=== PATIENT | female | born 1975 | race Caucasian/White ===

== ENCOUNTER 2017-10-29 13:44 | Inpatient (IN) | payer MEDICAID ==
[2017-10-29 15:33] LABS: RUPTURE FETAL MEMBRANES POSITIVE (NEGATIVE)
[2017-10-29] MEDS: BETAMET NA PHOS/AC(6 MG/ML) 5ML INJ IM (16:22)
[2017-10-29 16:49] LABS: ADD MAN DIFF? NO
[2017-10-29 16:51] LABS: BASOPHIL # 0.1 10^3/ul (0.0-0.1); BASOPHILS % 0.4 % (0.0-2.0); EOSINOPHILS # 0.1 10^3/ul (0.0-0.5); EOSINOPHILS % 1.1 % (0.0-7.0); HEMATOCRIT 35.4 % (37.0-47.0); HEMOGLOBIN 11.5 g/dl (12.0-16.0); LYMPHOCYTES % 16.2 % (15.0-51.0); MEAN CORPUSCULAR HEMOGLOBIN 26.4 pg (29.0-33.0); MEAN CORPUSCULAR HGB CONC 32.5 g/dl (32.0-37.0); MEAN CORPUSCULAR VOLUME 81.2 fl (82.0-101.0); MEAN PLATELET VOLUME 10.7 fl (7.4-10.4); MONOCYTE # 1.1 10^3/ul (0.3-0.9); MONOCYTES % 8.9 % (0.0-11.0); NEUTROPHIL # 8.9 10^3/ul (1.6-7.5); NEUTROPHILS % 71.9 % (39.0-77.0); PLATELET COUNT 199 10^3/UL (140-415); RED BLOOD COUNT 4.36 10^6/ul (4.20-5.40)
[2017-10-29 16:51] LABS: WHITE BLOOD COUNT 12.3 10^3/ul (4.8-10.8)
[2017-10-29 17:11] LABS: INR 0.89; PROTIME 12.1 Sec (11.9-14.9); PT RATIO 0.9
[2017-10-29] MEDS: LACTATED RINGER'S 1,000 ML IV ×2 (17:25→23:49)
[2017-10-29] MEDS: AMPICILLIN 2 GM/NS (PMX) 100 ML IVPB (17:40)
[2017-10-29] MEDS: ACCU-CHEK XX (20:20)
[2017-10-29] MEDS: AZITHROMYCIN 500MG/NS (PMX) 250 ML IVPB (20:35)
[2017-10-29] MEDS ORDERED: MICONAZOLE 100 MG VAG SUPP VAG (21:00)
[2017-10-29] MEDS: AMPICILLIN 1 GM/NS (PMX) 50 ML IVPB (22:12)
[2017-10-29] MEDS: NIFEdipine (XL) 30 MG TAB PO (23:00)
[2017-10-29] MEDS: MICONAZOLE 100 MG VAG SUPP VAG (23:34)
[2017-10-30] MEDS: AMPICILLIN 1 GM/NS (PMX) 50 ML IVPB ×6 (02:02→22:23)
[2017-10-30] MEDS ORDERED: GLUCOSE GEL 15 GRAM TUBE BUCCAL (09:00)
[2017-10-30] MEDS ORDERED: GLUCOSE GEL 15 GRAM TUBE PO ×2 (09:00)
[2017-10-30] MEDS ORDERED: DEXTROSE 50% 50 ML SYRINGE IV ×2 (09:00)
[2017-10-30] MEDS ORDERED: GLUCAGON 1 MG INJ IM (09:00)
[2017-10-30] MEDS: PRENATAL VITAMIN PO (09:32)
[2017-10-30] MEDS: FERROUS SULFATE (EC) 325 MG TAB PO (09:32)
[2017-10-30] MEDS: LACTATED RINGER'S 1,000 ML IV ×2 (09:35→18:23)
[2017-10-30] MEDS: BETAMET NA PHOS/AC(6 MG/ML) 5ML INJ IM (16:23)
[2017-10-30] MEDS: ACCU-CHEK XX (20:15)
[2017-10-30 20:55] LABS: RAPID PLASMA REAGIN NONREACTIVE (NR)
[2017-10-30] MEDS: NIFEdipine (XL) 30 MG TAB PO (21:00)
[2017-10-30] MEDS: AZITHROMYCIN 500MG/NS (PMX) 250 ML IVPB (21:11)
[2017-10-30] MEDS: MICONAZOLE 100 MG VAG SUPP VAG (22:10)
[2017-10-30] MEDS: metFORMIN 500 MG TAB PO (22:10)
[2017-10-31] MEDS: AMPICILLIN 1 GM/NS (PMX) 50 ML IVPB ×6 (02:31→22:46)
[2017-10-31] MEDS: LACTATED RINGER'S 1,000 ML IV ×3 (04:06→21:03)
[2017-10-31] MEDS: ONDANSETRON 4 MG INJ IV (09:28)
[2017-10-31] MEDS: CITRIC ACID/SODIUM CITRATE 15 ML CUP PO (09:28)
[2017-10-31] MEDS: PRENATAL VITAMIN PO (10:13)
[2017-10-31] MEDS: FERROUS SULFATE (EC) 325 MG TAB PO (10:13)
[2017-10-31] MEDS: CEFAZOLIN 2 GM/50 ML (PMX) 50 ML IVPB (20:23)
[2017-10-31] MEDS: AZITHROMYCIN 500MG/NS (PMX) 250 ML IVPB (20:50)
[2017-10-31] MEDS: NIFEdipine (XL) 30 MG TAB PO (21:02)
[2017-10-31] MEDS: MICONAZOLE 100 MG VAG SUPP VAG (23:07)
[2017-10-31] MEDS: metFORMIN 500 MG TAB PO (23:07)
[2017-10-31] MEDS: HYDROmorphONE 0.5 MG/0.5 ML SYG IV (23:20)
[2017-11-01] MEDS: AMPICILLIN 1 GM/NS (PMX) 50 ML IVPB ×6 (03:00→21:00)
[2017-11-01] MEDS: LACTATED RINGER'S 1,000 ML IV ×4 (08:11→20:06)
[2017-11-01] MEDS: PRENATAL VITAMIN PO (09:00)
[2017-11-01] MEDS: FERROUS SULFATE (EC) 325 MG TAB PO (09:00)
[2017-11-01 10:38] LABS: ADD MAN DIFF? NO
[2017-11-01 10:46] LABS: BASOPHILS % 0.2 % (0.0-2.0); EOSINOPHILS # 0.1 10^3/ul (0.0-0.5); EOSINOPHILS % 0.6 % (0.0-7.0); HEMATOCRIT 28.6 % (37.0-47.0); HEMOGLOBIN 9.3 g/dl (12.0-16.0); LYMPHOCYTES % 15.5 % (15.0-51.0); MEAN CORPUSCULAR HEMOGLOBIN 26.8 pg (29.0-33.0); MEAN CORPUSCULAR HGB CONC 32.5 g/dl (32.0-37.0); MEAN CORPUSCULAR VOLUME 82.4 fl (82.0-101.0); MEAN PLATELET VOLUME 10.5 fl (7.4-10.4); MONOCYTE # 1.2 10^3/ul (0.3-0.9); MONOCYTES % 9.1 % (0.0-11.0); NEUTROPHIL # 9.3 10^3/ul (1.6-7.5); NEUTROPHILS % 70.8 % (39.0-77.0); PLATELET COUNT 181 10^3/UL (140-415); RED BLOOD COUNT 3.47 10^6/ul (4.20-5.40); RED CELL DISTRIBUTION WIDTH 14.6 % (11.5-14.5)
[2017-11-01 10:46] LABS: WHITE BLOOD COUNT 13.1 10^3/ul (4.8-10.8)
[2017-11-01 11:03] LABS: INR 0.96; PROTIME 12.9 Sec (11.9-14.9)
[2017-11-01] MEDS ORDERED: OXYTOCIN 10 UNIT INJ (19:30)
[2017-11-01] MEDS ORDERED: morphine SULFATE/PF (10 MG/10 ML) INJ (19:30)
[2017-11-01] MEDS ORDERED: BUPIVACAINE 0.75%/DEXT (SPINAL) 2 ML INJ (19:31)
[2017-11-01] MEDS ORDERED: OXYTOCIN 30 UNITS/LR 500 ML IV ×3 (19:36→22:00)
[2017-11-01] MEDS ORDERED: FAMOTIDINE 20 MG INJ (19:49)
[2017-11-01] MEDS ORDERED: ONDANSETRON 4 MG INJ (19:49)
[2017-11-01] MEDS: ONDANSETRON 4 MG INJ IV (19:51)
[2017-11-01] MEDS: FAMOTIDINE 20 MG INJ IV (19:53)
[2017-11-01] MEDS ORDERED: METOCLOPRAMIDE 10 MG INJ (19:55)
[2017-11-01] MEDS: METOCLOPRAMIDE 10 MG INJ IV (19:56)
[2017-11-01] MEDS: AZITHROMYCIN 500MG/NS (PMX) 250 ML IVPB (20:00)
[2017-11-01] MEDS ORDERED: EPINEPHrine 1 MG INJ (20:28)
[2017-11-01] MEDS ORDERED: HYDROmorphONE 0.5 MG/0.5 ML SYG IV (20:30)
[2017-11-01] MEDS ORDERED: KETOROLAC 30 MG INJ IV (20:30)
[2017-11-01] MEDS ORDERED: NALOXONE (0.4 MG/ML) INJ IV (20:30)
[2017-11-01] MEDS ORDERED: HYDROmorphONE (0.2 MG/ML) 10ML SYG IV ×3 (20:30)
[2017-11-01] MEDS ORDERED: ONDANSETRON 4 MG INJ IV ×2 (20:30)
[2017-11-01] MEDS ORDERED: ZOLPIDEM 5 MG TAB PO (20:30)
[2017-11-01] MEDS ORDERED: DIPHENHYDRAMINE 50 MG INJ IV ×2 (20:30)
[2017-11-01] MEDS ORDERED: FENTAnyl 50 MCG/ML VIAL IV ×2 (20:30)
[2017-11-01] MEDS: metFORMIN 500 MG TAB PO (21:00)
[2017-11-01] MEDS: MICONAZOLE 100 MG VAG SUPP VAG (21:00)
[2017-11-01] MEDS: NIFEdipine (XL) 30 MG TAB PO (21:00)
[2017-11-01] MEDS: DEXTROSE 5%-LR 1,000 ML IV (21:43)
[2017-11-01] MEDS ORDERED: METHYLERGONOVINE 0.2 MG TAB PO (22:00)
[2017-11-01] MEDS ORDERED: CARBOPROST 250 MCG INJ IM (22:00)
[2017-11-01] MEDS ORDERED: MISOPROSTOL 200 MCG TAB PR (22:00)
[2017-11-01] MEDS ORDERED: METHYLERGONOVINE 0.2 MG INJ IM (22:00)
[2017-11-01] MEDS: OXYCODONE/ACETAMINOPHEN (5/325) TAB PO (22:00)
[2017-11-01] MEDS ORDERED: OXYCODONE/ACETAMINOPHEN (5/325) TAB PO (22:00)
[2017-11-01] MEDS: HYDROmorphONE 0.5 MG/0.5 ML SYG IV ×2 (22:20)
[2017-11-01] MEDS: OXYTOCIN 30 UNITS/LR 500 ML IV (22:30)
[2017-11-01] MEDS: KETOROLAC 30 MG INJ IV (22:32)
[2017-11-02] MEDS: LACTATED RINGER'S 1,000 ML IV ×3 (03:51→19:30)
[2017-11-02] MEDS: OXYCODONE/ACETAMINOPHEN (5/325) TAB PO ×3 (08:16→23:22)
[2017-11-02] MEDS: SENNA/DOCUSATE NA (8.6MG/50MG) TAB PO ×2 (09:12→21:00)
[2017-11-02 09:36] LABS: ADD MAN DIFF? NO
[2017-11-02 09:41] LABS: WHITE BLOOD COUNT 11.6 10^3/ul (4.8-10.8)
[2017-11-02 09:41] LABS: BASOPHILS % 0.3 % (0.0-2.0); EOSINOPHILS % 0.3 % (0.0-7.0); HEMATOCRIT 31.7 % (37.0-47.0); HEMOGLOBIN 10.2 g/dl (12.0-16.0); LYMPHOCYTES # 1.3 10^3/ul (0.8-2.9); MEAN CORPUSCULAR HEMOGLOBIN 26.6 pg (29.0-33.0); MEAN CORPUSCULAR HGB CONC 32.2 g/dl (32.0-37.0); MEAN CORPUSCULAR VOLUME 82.8 fl (82.0-101.0); MEAN PLATELET VOLUME 10.4 fl (7.4-10.4); MONOCYTE # 0.9 10^3/ul (0.3-0.9); MONOCYTES % 7.8 % (0.0-11.0); NEUTROPHIL # 9.2 10^3/ul (1.6-7.5); NEUTROPHILS % 79.1 % (39.0-77.0); PLATELET COUNT 183 10^3/UL (140-415); RED BLOOD COUNT 3.83 10^6/ul (4.20-5.40); RED CELL DISTRIBUTION WIDTH 14.4 % (11.5-14.5)
[2017-11-02] MEDS: IBUPROFEN 800 MG TAB PO (23:22)
[2017-11-03] MEDS: LACTATED RINGER'S 1,000 ML IV ×3 (01:11→19:30)
[2017-11-03] MEDS: IBUPROFEN 800 MG TAB PO ×3 (05:29→21:29)
[2017-11-03] MEDS: OXYCODONE/ACETAMINOPHEN (5/325) TAB PO ×3 (05:29→21:30)
[2017-11-03] MEDS: SENNA/DOCUSATE NA (8.6MG/50MG) TAB PO ×2 (09:17→21:16)
[2017-11-04] MEDS: LACTATED RINGER'S 1,000 ML IV ×2 (03:30→19:30)
[2017-11-04] MEDS: IBUPROFEN 800 MG TAB PO ×3 (05:58→22:00)
[2017-11-04] MEDS: OXYCODONE/ACETAMINOPHEN (5/325) TAB PO ×3 (05:58→22:01)
[2017-11-04] MEDS: SENNA/DOCUSATE NA (8.6MG/50MG) TAB PO ×2 (09:00→21:29)
[2017-11-04] MEDS: DIPHTH/TET/ACEL PERTUSS (ADULT) 0.5 ML VIAL IM* (09:00)
[2017-11-05] MEDS: LACTATED RINGER'S 1,000 ML IV ×2 (03:30→11:30)
[2017-11-05] MEDS: LANOLIN 7 GM TUBE TOP (04:09)
[2017-11-05] MEDS: IBUPROFEN 800 MG TAB PO ×2 (05:50→17:22)
[2017-11-05] MEDS: OXYCODONE/ACETAMINOPHEN (5/325) TAB PO ×2 (05:51→14:00)
[2017-11-05] MEDS: MEASLES,MUMPS,RUBELLA VACCINE INJ SC* (08:00)
[2017-11-05] MEDS: SENNA/DOCUSATE NA (8.6MG/50MG) TAB PO (09:00)
== END 2017-11-05 18:00 | disposition home or self-care (01) | DRG 766 ==
LOC: OBT 13:44 → L-D 11-01 20:16 → PP1 11-01 23:48 → OBT 16:05 → L-D 16:05
PROVIDERS: Obstetrics & Gynecology
PROC: 10D00Z1 Extraction of Products of Conception, Low, Open Approach (ICD-10-PCS; principal; 2017-11-01 19:00)
PROC: 0UB70ZZ Excision of Bilateral Fallopian Tubes, Open Approach (ICD-10-PCS; 2017-11-01 19:00)
DX: O60.14X0 Preterm labor third trimester with preterm delivery third trimester, not applicable or unspecified (principal); O34.211 Maternal care for low transverse scar from previous cesarean delivery; Z3A.34 34 weeks gestation of pregnancy; Z37.0 Single live birth; Z30.2 Encounter for sterilization; O24.419 Gestational diabetes mellitus in pregnancy, unspecified control
CPT/HCPCS: 76815; 76817; 76818; 82962; 84112; 85025; 85610; 85730; 86592; 86850; 86900; 86901; 88302; 88307; 99464

== ENCOUNTER 2017-11-08 10:06 | Emergency (ER) | payer SELFPAY, MEDICAID ==
[2017-11-08 11:05] LABS: ADD MAN DIFF? NO
[2017-11-08 11:06] LABS: URINE BLOOD (Dip) POC 2+ (NEGATIVE); URINE GLUCOSE (Dip) POC Negative (NEGATIVE); URINE KETONES (Dip) POC Negative (NEGATIVE); URINE LEUKOCYTE EST (Dip) POC 1+ (NEGATIVE); URINE NITRITE (Dip) POC Negative (NEGATIVE); URINE TOTAL PROTEIN POC Negative (NEGATIVE)
[2017-11-08 11:07] LABS: BASOPHIL # 0.1 10^3/ul (0.0-0.1); BASOPHILS % 0.8 % (0.0-2.0); EOSINOPHILS # 0.2 10^3/ul (0.0-0.5); EOSINOPHILS % 2.1 % (0.0-7.0); HEMATOCRIT 38.4 % (37.0-47.0); HEMOGLOBIN 12.2 g/dl (12.0-16.0); LYMPHOCYTES # 1.8 10^3/ul (0.8-2.9); LYMPHOCYTES % 20.4 % (15.0-51.0); MEAN CORPUSCULAR HEMOGLOBIN 26.6 pg (29.0-33.0); MEAN CORPUSCULAR HGB CONC 31.8 g/dl (32.0-37.0); MEAN CORPUSCULAR VOLUME 83.8 fl (82.0-101.0); MEAN PLATELET VOLUME 9.7 fl (7.4-10.4); MONOCYTE # 0.7 10^3/ul (0.3-0.9); MONOCYTES % 7.6 % (0.0-11.0); NEUTROPHILS % 68.2 % (39.0-77.0); PLATELET COUNT 268 10^3/UL (140-415); RED BLOOD COUNT 4.58 10^6/ul (4.20-5.40); RED CELL DISTRIBUTION WIDTH 13.6 % (11.5-14.5)
[2017-11-08 11:07] LABS: WHITE BLOOD COUNT 8.9 10^3/ul (4.8-10.8)
[2017-11-08 11:28] LABS: ALANINE AMINOTRANSFERASE 29 IU/L (13-69); ALBUMIN 3.7 g/dl (3.3-4.9); ALBUMIN/GLOBULIN RATIO 1.15; ALKALINE PHOSPHATASE 83 IU/L (42-121); ANION GAP 12 (8-16); ASPARTATE AMINO TRANSFERASE 17 IU/L (15-46); BILIRUBIN,INDIRECT 0.3 mg/dl (0-1.1); BILIRUBIN,TOTAL 0.3 mg/dl (0.2-1.3); BLOOD UREA NITROGEN 13 mg/dl (7-20); CALCIUM 8.9 mg/dl (8.4-10.2); CARBON DIOXIDE 26 mmol/L (21-31); CHLORIDE 108 mmol/L (97-110); CREATININE 0.79 mg/dl (0.44-1.00); GLUCOSE 105 mg/dl (70-220); POTASSIUM 3.9 mmol/L (3.5-5.1); SODIUM 142 mmol/L (135-144); TOTAL PROTEIN 6.9 g/dl (6.1-8.1)
== END 2017-11-08 14:07 | disposition home or self-care (01) ==
LOC: FTE 10:06
DX: I80.8 Phlebitis and thrombophlebitis of other sites (principal)
CPT/HCPCS: 36415; 80053; 81003; 81025; 85025; 93971; 99284-25